=== PATIENT | male | born 1995 | race Two or more races ===

== ENCOUNTER 2019-02-02 08:48 | Emergency (ER) | payer SELFPAY ==
[~2019-02-02] VITALS: Ht 172.7 cm; Wt 80.2 kg
--- NOTE | 2019-02-02 09:10 | NUR ---
PT. IS A & O X 4 WITH C/O 2 DAY HX OF RLG PAIN AFTER EATING SEAFOOD. PT. HAS C/O PAIN WITH PALPATION. UA A REQUESTED. PT. WAS GIVEN A BLANKET FOR WARMTH. HOB IS ELEVATED GREATER THAN 30 DEGREES. PT. REMAINS PINK, WARM AND DRY. SIDERAILS ARE UP X 2 WITH THE CALL LIGHT IN PLACE.
[2019-02-02] MEDS ORDERED: AZITHROMYCIN 500 MG TABLET PO ONE (09:30)
[2019-02-02] MEDS ORDERED: CEFTRIAXONE 250 MG IM ONE (09:30)
[2019-02-02] MEDS ORDERED: ONDANSETRON 2MG/ML, 2ML IVPush ONE (09:30)
[2019-02-02 09:39] LABS: BASOPHILS # (AUTO) 0.03 x10^3/uL (0-0.1); BASOPHILS % (AUTO) 1 % (0-1); EOSINOPHILS # (AUTO) 0.01 x10^3/uL (0-0.4); EOSINOPHILS % (AUTO) 0 % (1-7); LYMPHOCYTES # (AUTO) 1.37 x10^3/uL (1-3.4); LYMPHOCYTES % (AUTO) 22 % (22-44); MD NO; MEAN CORPUSCULAR HEMOGLOBIN 30.3 pg (27.5-34.5); MEAN CORPUSCULAR HGB CONC 32.5 g/dL (33.2-36.2); MEAN CORPUSCULAR VOLUME 93.1 fL (81-97); MEAN PLATELET VOLUME 7.9 fL (7.4-10.4); MONOCYTES # (AUTO) 0.31 x10^3/uL (0.2-0.8); MONOCYTES % (AUTO) 5 % (2-9); NEUTROPHILS # (AUTO) 4.51 x10^3/uL (1.8-6.8); NEUTROPHILS % (AUTO) 72 % (42-75); PLATELET COUNT 264 x10^3/uL (130-400); RED BLOOD COUNT 5.46 x10^6/uL (4.38-5.82); RED CELL DISTRIBUTION WIDTH 12.8 % (9.4-14.8)
[2019-02-02 09:43] LABS: ALBUMIN 4.1 g/dL (3.4-5.0); ANION GAP 5 mmol/L (5-15); CALCIUM 9.1 mg/dL (8.5-10.1); CHLORIDE 110 mmol/L (98-107)
[2019-02-02 09:47] LABS: ALANINE AMINOTRANSFERASE 48 U/L (12-78); ALKALINE PHOSPHATASE 104 U/L (45-117); BILIRUBIN,TOTAL 0.7 mg/dL (0.2-1.0); CREATININE 0.83 mg/dL (0.7-1.3); TOTAL PROTEIN 7.5 g/dL (6.4-8.2)
--- NOTE | 2019-02-02 10:04 | NUR ---
CONTACT WITH PT. PT SITTING UP ON GURNEY, NO ACUTE DISTRESS NOTED. PT UPDATED ON POC.
[2019-02-02] MEDS ORDERED: CEFTRIAXONE 250 MG ONE (10:18)
[2019-02-02] MEDS ORDERED: LIDOCAINE-MPF 1%, 5ML ONE (10:18)
[2019-02-02] MEDS ORDERED: AZITHROMYCIN 500 MG TABLET ONE (10:18)
[2019-02-02 10:34] VITALS: BP 146/78
[2019-02-02] MEDS ORDERED: OMNIPAQUE 350 MG/ML, 100ML BOTTLE ONE (10:47)
--- NOTE | 2019-02-02 11:06 | NUR ---
PT DENIES NAUSEA AT THIS TIME. PT AWARE [facility] AVAILABLE IF NEEDED. PT AMB TO BR, GAIT STEADY. WAITING FOR TEST RESULTS.
--- NOTE | 2019-02-02 11:50 | NUR ---
FIRST CONTACT WITH PT: Patient/Caregiver given discharge instructions and they have confirmed that they understand the instructions. Patient ambulatory with steady gait. PT LEFT WITH ALL PERSONAL BELONGINGS. PIV DISCONTINUED, PRESSURE DRESSING APPLIED.
== END 2019-02-02 11:53 | disposition home or self-care (01) ==
LOC: ED 11:35
DX: A56.01 Chlamydial cystitis and urethritis (principal); A54.01 Gonococcal cystitis and urethritis, unspecified; A51.0 Primary genital syphilis; R10.31 Right lower quadrant pain; B37.89 Other sites of candidiasis; F17.210 Nicotine dependence, cigarettes, uncomplicated
CPT/HCPCS: 36415; 74177; 80053; 85025; 96372; 99284; J0696; Q9967